=== PATIENT | female | born 2000 | race Caucasian/White ===

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

== ENCOUNTER 2024-04-26 19:39 | Emergency (ER) | payer OTHER, SELFPAY ==
[2024-04-26 19:39] VITALS: BP 124/57; PULSE 91; RESP 16; TEMP 36.8; O2SAT 96; BMI 17.9
[2024-04-26 19:54] LABS: Coronavirus 19, PCR Not Detected (NotDetected); Influenza B, PCR Not Detected (NotDetected)
[2024-04-26] MEDS: IBUPROFEN 400 MG TABLET PO (20:22)
[2024-04-26 20:27] VITALS: BP 113/74; PULSE 86; RESP 15; O2SAT 96
--- NOTE | 2024-04-26 20:27 | ED_ITS ---
Discharge Plan Disposition Patient Disposition: Home, Self-Care Condition: Good Prescriptions Prescriptions: New osynqhbihthoxay-ioxccepla-XD [Bromfed DM] 2-30-10 mg/5 mL syrup 5 ml PO Q6H PRN (Reason: allergy symptoms) Qty: 100 0RF kxnieagxcwfowae-fskqwxzwd-EB [Bromfed DM] 2-30-10 mg/5 mL syrup 5 ml PO Q6H PRN (Reason: allergy symptoms) Qty: 100 0RF Referrals Follow up/Referrals: Stanley Medina [Primary Care Provider] - See instructions Activity Restrictions/Add. Instructions Additional Instructions/Restrictions: You were seen for flu A. You can take Tylenol, ibuprofen drink plenty of fluids and rest. Follow-up with your PCP for recheck this week. Clinical Impressions Clinical Impression: Influenza A Stand Alone Forms Stand Alone Forms: Work/School Release Instructions Patient Instructions: DI for Influenza -- Adult Print Language Print Language: Kazakh Discharge ED Provider: Rory Glasgow General Adult HPI <TALIA Dwyer - Last Filed: 04/26/24 20:35> General Chief complaint: Headache Stated complaint: fever, SALAZAR Time Seen by Provider: 04/26/24 19:49 Mode of Arrival: Ambulatory Source of Information: Patient Limitations: No Limitations Description of Symptoms (Recalled from ER Triage Doc. by RN): pt reports she has been having a fever, headaches, weakness, and body aches x3 days. pt has been medicating at home with tylenol and ibuprofen without relief. History of Present Illness HPI narrative: Patient presents with fever, cough, congestion. Symptoms started 2 days ago. Denies any known sick contacts. She reports that she had 1 g of Tylenol and 200 mg of ibuprofen prior to arrival. Tmax 102. Denies any vomiting or diarrhea. Denies any urinary symptoms. Denies . complaint: Fever Onset (ago): day(s) Radiation: non-radiation Severity: moderate Consistency: intermittent Relieving factors: medication Exacerbating factors: none Related Data Previous Rx's ?Medication ?Instructions ?Recorded uijwdysnbnwoybc-nbnsatbvdfqgnqh-OF 5 ml PO Q6H PRN allergy symptoms 04/26/24 2 mg-30 mg-10 mg/5 mL oral syrup #100 mL (Bromfed DM) rbgyrzljstkjdop-zufplrhlfhqbvix-ZW 5 ml PO Q6H PRN allergy symptoms 04/26/24 2 mg-30 mg-10 mg/5 mL oral syrup #100 mL (Bromfed DM) Allergies Allergy/AdvReac Type Severity Reaction Status Date / Time No Known Allergies Allergy Verified 08/22/19 22:37 PFS <TALIA Dwyer - Last Filed: 04/26/24 20:35> [facility] Disclaimer: The information contained in this section may have been updated after the patient was seen, as this information can be updated by other users. Social History Smoking Status: Never smoker alcohol intake: never current occupational status: student Travel in the last 8 weeks: None Have you lived/traveled outside [place] in past 30 days?: No Contact w/someone who lives/traveled outside [place] past 30 days?: No Exposure to someone with infectious disease in past 14 days?: No Do you have a fever (greater than 100.4 F or 38 C)?: No Have you tested positive for COVID-19: No Exposed to someone with COVID-19 in past 14 days?: No Do you have a sore throat?: No Do you have a cough?: Yes Do you have any weakness?: Yes Do you have any diarrhea?: No Are you experiencing any unusual bleeding?: No Do you have any muscle aches/pain?: No Do you have any abdominal pain?: No Are you experiencing loss of taste or smell?: No Other Medical History Have you received the Flu Vaccine for this season: Yes Have you received the Pneumonia Vaccine: No <TALIA Dwyer - Last Filed: 04/26/24 20:35> ROS Obtained: Yes Systems reviewed as appropriate & no additional complaints except as documented Physical Exam <TALIA Dwyre - Last Filed: 04/26/24 20:35> General General appearance: alert and in no apparent distress Head Head exam: atraumatic and normocephalic Eye Eye exam: Present normal appearance and EOMI ENT ENT exam: Present normal exam, normal oropharynx, mucous membranes moist, TM's normal bilaterally and normal external ear exam Chest Chest inspection: Present symmetric chest wall rise Respiratory Respiratory exam: Present normal lung sounds bilaterally; Absent wheezes or stridor Cardiovascular Cardiovascular exam: Present regular rate and normal rhythm; Absent systolic murmur Extremities Exam Extremities exam: Present full ROM Neurological Exam Neurological exam: Present alert and oriented X3 Psychiatric Psychiatric exam: Present normal affect and normal mood Skin Skin exam: Present warm, dry and intact Medical Decision Making <TALIA Dwyer - Last Filed: 04/26/24 20:35> Medical Records Screening: Per USPSTF and CDC recommendations, given the prevalence of disease in our region, it is our hospital?s policy to screen for HIV and viral Hepatitis for all patients aged 18 and over and those with ongoing risk factors. Alen Inquiry Pt receiving controlled substance: No Vital Signs: 04/26/24 19:39 04/26/24 20:27 04/26/24 20:42 Temperature 98.3 F 98.3 F Temperature Source Oral Pulse Rate 86 96 H Pulse Rate [Right] 91 H Respiratory Rate 16 15 20 Blood Pressure 113/74 111/75 Blood Pressure [Right Arm] 124/57 L Blood Pressure Mean 87 Blood Pressure Mean [Right Arm] 79 02 Sat by Pulse Oximetry 96 96 Oxygen Delivery Method Room Air Room Air Room Air Lab Data Lab Results 04/26/24 19:44: SARS-CoV-2 (PCR) Not detected, Influenza A Untype (PCR) Detected A, Influenza Type B (PCR) Not detected Orders (Tests/Meds): ED MEDICATIONS Discontinued Medications Generic Name Dose Route Start Last Admin Trade Name Freq PRN Reason Stop Dose Admin Ibuprofen 400 mg 04/26/24 20:14 04/26/24 20:22 Ibuprofen 400 Mg Tablet PO 04/26/24 20:15 400 mg ONCE ONE Administration ORDERS Category Date Time Status Rapid PCR Covid and Flu A/B Stat Lab 04/26/24 19:44 Completed Medical Decision Narrative: In summary patient is a 23-year-old who presents the emergency department for evaluation of fever, cough, congestion. Patient is hemodynamically stable upon arrival, afebrile. Unremarkable physical exam. Differential diagnosis includes COVID, flu, pneumonia,. Initial workup will be conducted with flu, COVID swab. Initial inventions include ibuprofen. Initial workup reviewed by me flu a positive. Upon repeat evaluation improvement of symptoms with ibuprofen. Given this patient is appropriate for discharge with instructions for supportive care. <Rory Glasgow MD - Last Filed: 04/27/24 15:20> Vital Signs: 04/26/24 19:39 04/26/24 20:27 04/26/24 20:42 Temperature 98.3 F 98.3 F Temperature Source Oral Pulse Rate 86 96 H Pulse Rate [Right] 91 H Respiratory Rate 16 15 20 Blood Pressure 113/74 111/75 Blood Pressure [Right Arm] 124/57 L Blood Pressure Mean 87 Blood Pressure Mean [Right Arm] 79 02 Sat by Pulse Oximetry 96 96 Oxygen Delivery Method Room Air Room Air Room Air Lab Data Lab Results 04/26/24 19:44: SARS-CoV-2 (PCR) Not detected, Influenza A Untype (PCR) Detected A, Influenza Type B (PCR) Not detected Orders (Tests/Meds): ED MEDICATIONS Discontinued Medications Generic Name Dose Route Start Last Admin Trade Name Krisq PRN Reason Stop Dose Admin Ibuprofen 400 mg 04/26/24 20:14 04/26/24 20:22 Ibuprofen 400 Mg Tablet PO 04/26/24 20:15 400 mg ONCE ONE Administration ORDERS Category Date Time Status Rapid PCR Covid and Flu A/B Stat Lab 04/26/24 19:44 Completed Medical Decision Narrative: In summary patient is a 23-year-old who presents the emergency department for evaluation of fever, cough, congestion. Patient is hemodynamically stable upon arrival, afebrile. Unremarkable physical exam. Differential diagnosis includes COVID, flu, pneumonia,. Initial workup will be conducted with flu, COVID swab. Initial inventions include ibuprofen. Initial workup reviewed by me flu a positive. Upon repeat evaluation improvement of symptoms with ibuprofen. Given this patient is appropriate for discharge with instructions for supportive care. I was consulted by the MARIO, and we discussed the complexity of the problems being addressed. I approved the treatment and management plan for this patient's care in the Emergency Department, thus performing a substantive portion of the medical decision making. Rory Glasgow MD Critical Care <TALIA Dwyer - Last Filed: 04/26/24 20:35> Critical Care Time Critical Care Time: No
[2024-04-26 20:28] LABS: Influenza A, PCR Detected (NotDetected)
[2024-04-26 20:42] VITALS: BP 111/75; PULSE 96; RESP 20; TEMP 36.8
== END 2024-04-26 20:43 | disposition home or self-care (01) ==
PROVIDERS: Emergency Provider Emergency Medicine; PCP Family Medicine
DX: J10.1 Influenza due to other identified influenza virus with other respiratory manifestations (principal); R50.9 Fever, unspecified; R51.9 Headache, unspecified; R53.1 Weakness; M79.10 Myalgia, unspecified site; R05.9 Cough, unspecified; R09.81 Nasal congestion
CPT/HCPCS: 87636; 99283